=== PATIENT | female | born 1980 | race Caucasian/White ===

== ENCOUNTER → 2016-03-09 | Outpatient (REF) | payer OTHER ==
[2016-03-09 13:40] LABS: FREE T4 0.35 NG/DL (0.76-1.46)
== END ==
LOC: M SFHCADAM 11:01
PROVIDERS: ATTEND Physician Assistant Medical
DX: E89.0 Postprocedural hypothyroidism (principal); E55.9 Vitamin D deficiency, unspecified

== ENCOUNTER → 2016-03-09 | Outpatient (CLI) | payer OTHER ==
--- NOTE | 2016-03-09 12:47 | REP ---
LUMBAR SPINE, FIVE VIEWS: HISTORY: Back pain. There is no acute fracture or subluxation. The L3-4 and L4-5 intervertebral discs are decreased in height consistent with disc degeneration. Osteophytes are present on L4. The facet joints are normal in appearance. IMPRESSION: Degenerative change as described above. Signed by Ed Vela MD 03/09/2016 12:49 P
== END ==
LOC: M ADAMS 11:08
PROVIDERS: ATTEND Physician Assistant Medical
DX: M54.5 Low back pain (principal)

== ENCOUNTER 2016-03-10 08:21 | Emergency (ER) | payer OTHER ==
--- NOTE | 2016-03-10 09:59 | EDDOCDS ---
Physician Documentation [facility] Name: Chelsie Hare Age: 35 yrs Sex: Female : 1980 Arrival Date: 03/10/2016 Time: 08:21 Bed Triage 2 Private MD: Brenda Spann N. Disposition: 03/10/16 09:37 Discharged to Home/Self Care. Impression: Acute frontal sinusitis, Low back pain - mechanical, Acute upper respiratory infections of multiple and unspecified sites. - Condition is Stable. - Discharge Instructions: Back Pain, Adult, Sinusitis, [id number]. - Prescriptions for Levaquin 500 mg Oral Tablet - take 1 tablet by ORAL route once daily for 7 days; 7 tablet. Naprosyn 500 mg Oral Tablet - take 1 tablet by ORAL route 2 times per day take with food; 30 tablet. Prednisone 20 mg Oral Tablet - take 1 tablet by ORAL route once daily for 5 days; 5 tablet. Cyclobenzaprine 10 mg Oral Tablet - take 1 tablet by ORAL route 3 times per day As needed; 15 tablet. - Medication Reconciliation form. - Follow up: Emergency Department; When: As needed; Reason: Worsening of conditions. Follow up: Brenda Spann; When: Call to arrange an appointment; Reason: Wound/Symptom Recheck, Recheck today's complaints, Worsening of conditions, Continuance of care. - Problem is an ongoing problem. - Symptoms are unchanged. Historical: - Allergies: Amoxicillin (Rash); PENICILLINS (Rash, Anaphylaxis); - Home Meds: 1. Abilify 10 mg Oral tab 1 tab once daily 2. aspirin 81 mg Oral tab 1 tab once daily 3. Claritin 10 mg Oral tab 1 tab once daily 4. Dulcolax (bisacodyl) 5 mg Oral TbEC 1 tab once daily 5. Fetzima 120 mg oral Cs24 1 cap once daily 6. Flonase 50 mcg/actuation Nasal spsn 1 spray once daily 7. gabapentin 600 mg Oral tab 3 times per day 8. Klonopin 1 mg Oral tab 1 tab 2 times per day 9. levothyroxine 125 mcg Oral tab 2 tabs once daily 10. Miralax 17 gram Oral pwpk 1 packet twice a day 11. prazosin 1 mg Oral cap 1 cap nightly 12. Vitamin D Oral 2000 unit daily - PMHx: Anxiety; Bipolar disorder; Depression; Hypothyroidism; PTSD; - PSHx: Thyroidectomy; Cholecystectomy; Hysterectomy; - Social history: Smoking status: Patient uses tobacco products, light tobacco smoker. No barriers to communication noted, The patient speaks fluent Azerbaijani, Speaks appropriately for age. - Family history: Not pertinent. - : The pt / caregiver states he / she is not on anticoagulants. Home medication list is obtained from the patient. - Exposure Risk Screening:: None identified. 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 1 in. (154.94 cm) (R); Pain 8/10; 08:50 Body Mass Index 33.44 (80.29 kg, 154.94 cm) mlb1 MDM: 09:57 [facility] Payment Agreement was scanned into [employer] and attached to record. [facility] 09:57 Financial registration complete. [facility] Signatures: Tyrese Hansen RN RN mlb1 Keven Kaba PA-C PAHuyen cc10 Miriam Mahoney jls1 The chart was reviewed and I authenticate all verbal orders and agree with the evaluation and treatment provided.Attachments: 09:57 [facility] Payment Agreement jl MTDD
--- NOTE | 2016-03-10 09:59 | EDDOCDS ---
Nurse's Notes [facility] Name: Chelsie Hare Age: 35 yrs Sex: Female : 1980 Arrival Date: 03/10/2016 Time: 08:21 Bed Triage 2 Private MD: Brenda Spann N. Diagnosis: Acute frontal sinusitis;Low back pain-mechanical;Acute upper respiratory infections of multiple and unspecified sites Presentation: 03/10 08:28 Presenting complaint: Patient states: Low back pain for over a year worse in the past mlb1 two weeks and head congestion. Acute neurological deficits are not present. Mechanism of Injury: No Mechanism of Injury. Adult Sepsis Screening: The patient does not have new or worsening altered mentation. Patient's respiratory rate is less than 22. Systolic blood pressure is greater than 100. Patient has a qSOFA score of 0- Negative Sepsis Screen. 08:28 Acuity: KARAN Level 4 mlb1 09:54 Suicide/Homicide risk assessment- the patient denies having any suicidal and/or mlb1 homicidal ideations and does not present with any other emotional, behavioral or mental health complaints. 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 Transition of care: patient was not received from another setting of care. 09:54 Method Of Arrival: Walkin/Carried/Asstd mlb1 Triage Assessment: 08:50 General: Appears in no apparent distress, Behavior is appropriate for age, cooperative. mlb1 Pain: Location: low back area Pain currently is 8 out of 10 on a pain scale. Pain radiates to right leg and left leg. HIV screening NA for this visit Offered previously. 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 Abilify 10 mg Oral tab 1 tab once daily 2. aspirin 81 mg Oral tab 1 tab once daily 3. Claritin 10 mg Oral tab 1 tab once daily 4. Dulcolax (bisacodyl) 5 mg Oral TbEC 1 tab once daily 5. Fetzima 120 mg oral Cs24 1 cap once daily 6. Flonase 50 mcg/actuation Nasal spsn 1 spray once daily 7. gabapentin 600 mg Oral tab 3 times per day 8. Klonopin 1 mg Oral tab 1 tab 2 times per day 9. levothyroxine 125 mcg Oral tab 2 tabs once daily 10. Miralax 17 gram Oral pwpk 1 packet twice a day 11. prazosin 1 mg Oral cap 1 cap nightly 12. Vitamin D Oral 2000 unit daily - PMHx: Anxiety; Bipolar disorder; Depression; Hypothyroidism; PTSD; - PSHx: Thyroidectomy; Cholecystectomy; Hysterectomy; - Social history: Smoking status: Patient uses tobacco products, light tobacco smoker. No barriers to communication noted, The patient speaks fluent Bruneian, Speaks appropriately for age. - Family history: Not pertinent. - : The pt / caregiver states he / she is not on anticoagulants. Home medication list is obtained from the patient. - Exposure Risk Screening:: None identified. Screenin:54 Screening information is obtained from the patient. Fall risk: No risks identified. mlb1 Assistance ADL's: requires no assistance with activities of daily living. Abuse/DV Screen: The patient / caregiver reports he/she is: not in a situation that causes fear, pain or injury. Nutritional screening: No deficits noted. Advance Directives: Currently, there is no health care proxy. home support is adequate. Assessment: 09:54 General: Appears in no apparent distress, comfortable, Behavior is appropriate for age, mlb1 cooperative. Pain: Location: low back area Pain currently is 8 out of 10 on a pain scale. Respiratory: No deficits noted. Musculoskeletal: Circulation, motion, and sensation intact Range of motion intact in all extremities. Vital Signs: 08:50 BP 145 / 86; Pulse 103; Resp 16; Temp 98.3(TE); Pulse Ox 97% on R/A; Weight 80.29 kg mlb1 (R); Height 5 ft. 1 in. (154.94 cm) (R); Pain 8/10; 08:50 Body Mass Index 33.44 (80.29 kg, 154.94 cm) [facility] Vitals: 08:50 Log In Time: March 10, 2016 at 08:20. [facility] ED Course: 08:24 Patient visited by Alvarez Conroy. mm15 08:24 Brenda Spann is Private Physician. mm15 08:24 Patient moved to Waiting mm15 08:28 Patient visited by Tyrese Hansen, MEGAN. mlb1 08:29 Patient visited by Tyrese Hansen, MEGAN. mlb1 08:29 Triage Initiated mlb1 08:51 Patient visited by Tyrese Hansen RN. mlb1 09:21 Patient moved to Triage 2 mlb1 09:24 Keven Kaba [facility]C [facility] cc10 09:24 Keith Mcmahan MD is Attending Physician. cc10 09:29 Patient visited by Keven Kaba PA-C. cc10 09:29 Patient visited by Keven Kaba PA-C. cc10 09:37 Brenda Spann is Referral Physician. cc10 09:55 The patient / caregiver is instructed regarding the plan of care and ED course. mlb1 09:55 No IV's were initiated during this patient's visit. No procedures done that require mlb1 assistance. 09:57 [facility] Payment Agreement was scanned into [employer] and attached to record. jls1 Order Results: There are currently no results for this order. Outcome: 09:37 Discharge ordered by Provider. cc10 09:55 Discharge Assessment: Patient awake, alert and oriented x 3. No cognitive and/or mlb1 functional deficits noted. Patient verbalized understanding of disposition instructions. patient administered narcotics - no. The following High Risk Discharge criteria are identified: None. Discharged to home ambulatory. Condition: good. Discharge instructions given to patient, Instructed on discharge instructions, follow up and referral plans. medication usage, Demonstrated understanding of instructions, medications, Pt was receptive of discharge instructions/ teaching. Prescriptions given X 4. No special radiology studies were completed. Property sent home with patient. 09:58 Patient left the ED. mlb1 Signatures: Tyrese Hansen RN RN mlb1 Alvarez Conroy mm15 Keven Kaba PA-C PA-C cc10 Miriam Mahoney jls1 MTDD
--- NOTE | 2016-03-12 10:59 | EDDOCDS ---
Nurse's Notes [facility] Name: Chelsie Hare Age: 35 yrs Sex: Female : 1980 Arrival Date: 03/10/2016 Time: 08:21 Bed Triage 2 Private MD: Brenda Spann N. Diagnosis: Acute frontal sinusitis;Low back pain-mechanical;Acute upper respiratory infections of multiple and unspecified sites Presentation: 03/10 08:28 Presenting complaint: Patient states: Low back pain for over a year worse in the past mlb1 two weeks and head congestion. Acute neurological deficits are not present. Mechanism of Injury: No Mechanism of Injury. Adult Sepsis Screening: The patient does not have new or worsening altered mentation. Patient's respiratory rate is less than 22. Systolic blood pressure is greater than 100. Patient has a qSOFA score of 0- Negative Sepsis Screen. 08:28 Acuity: KARAN Level 4 mlb1 09:54 Suicide/Homicide risk assessment- the patient denies having any suicidal and/or mlb1 homicidal ideations and does not present with any other emotional, behavioral or mental health complaints. 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 Transition of care: patient was not received from another setting of care. 09:54 Method Of Arrival: Walkin/Carried/Asstd mlb1 Triage Assessment: 08:50 General: Appears in no apparent distress, Behavior is appropriate for age, cooperative. mlb1 Pain: Location: low back area Pain currently is 8 out of 10 on a pain scale. Pain radiates to right leg and left leg. HIV screening NA for this visit Offered previously. 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 Abilify 10 mg Oral tab 1 tab once daily 2. aspirin 81 mg Oral tab 1 tab once daily 3. Claritin 10 mg Oral tab 1 tab once daily 4. Dulcolax (bisacodyl) 5 mg Oral TbEC 1 tab once daily 5. Fetzima 120 mg oral Cs24 1 cap once daily 6. Flonase 50 mcg/actuation Nasal spsn 1 spray once daily 7. gabapentin 600 mg Oral tab 3 times per day 8. Klonopin 1 mg Oral tab 1 tab 2 times per day 9. levothyroxine 125 mcg Oral tab 2 tabs once daily 10. Miralax 17 gram Oral pwpk 1 packet twice a day 11. prazosin 1 mg Oral cap 1 cap nightly 12. Vitamin D Oral 2000 unit daily - PMHx: Anxiety; Bipolar disorder; Depression; Hypothyroidism; PTSD; - PSHx: Thyroidectomy; Cholecystectomy; Hysterectomy; - Social history: Smoking status: Patient uses tobacco products, light tobacco smoker. No barriers to communication noted, The patient speaks fluent Angolan, Speaks appropriately for age. - Family history: Not pertinent. - : The pt / caregiver states he / she is not on anticoagulants. Home medication list is obtained from the patient. - Exposure Risk Screening:: None identified. Screenin:54 Screening information is obtained from the patient. Fall risk: No risks identified. mlb1 Assistance ADL's: requires no assistance with activities of daily living. Abuse/DV Screen: The patient / caregiver reports he/she is: not in a situation that causes fear, pain or injury. Nutritional screening: No deficits noted. Advance Directives: Currently, there is no health care proxy. home support is adequate. Assessment: 09:54 General: Appears in no apparent distress, comfortable, Behavior is appropriate for age, mlb1 cooperative. Pain: Location: low back area Pain currently is 8 out of 10 on a pain scale. Respiratory: No deficits noted. Musculoskeletal: Circulation, motion, and sensation intact Range of motion intact in all extremities. Vital Signs: 08:50 BP 145 / 86; Pulse 103; Resp 16; Temp 98.3(TE); Pulse Ox 97% on R/A; Weight 80.29 kg mlb1 (R); Height 5 ft. 1 in. (154.94 cm) (R); Pain 8/10; 08:50 Body Mass Index 33.44 (80.29 kg, 154.94 cm) [facility] Vitals: 08:50 Log In Time: March 10, 2016 at 08:20. [facility] ED Course: 08:24 Patient visited by Alvarez Conroy. mm15 08:24 Brenda Spann is Private Physician. mm15 08:24 Patient moved to Waiting mm15 08:28 Patient visited by Tyrese Hansen, MEGAN. mlb1 08:29 Patient visited by Tyrese Hansen, MEGAN. mlb1 08:29 Triage Initiated mlb1 08:51 Patient visited by Tyrese Hansen RN. mlb1 09:21 Patient moved to Triage 2 mlb1 09:24 Keven Kaba PA-C [facility] cc10 09:24 Keith Mcmahan MD is Attending Physician. cc10 09:29 Patient visited by Keven Kaba PA-C. cc10 09:29 Patient visited by Keven Kaba PA-C. cc10 09:37 Brenda Spann is Referral Physician. cc10 09:55 The patient / caregiver is instructed regarding the plan of care and ED course. mlb1 09:55 No IV's were initiated during this patient's visit. No procedures done that require mlb1 assistance. 09:57 [facility] Payment Agreement was scanned into [employer] and attached to record. [facility] 13:58 T-Sheet-- Draft Copy was scanned into [employer] and attached to record. gb Order Results: There are currently no results for this order. Outcome: 09:37 Discharge ordered by Provider. cc10 09:55 Discharge Assessment: Patient awake, alert and oriented x 3. No cognitive and/or mlb1 functional deficits noted. Patient verbalized understanding of disposition instructions. patient administered narcotics - no. The following High Risk Discharge criteria are identified: None. Discharged to home ambulatory. Condition: good. Discharge instructions given to patient, Instructed on discharge instructions, follow up and referral plans. medication usage, Demonstrated understanding of instructions, medications, Pt was receptive of discharge instructions/ teaching. Prescriptions given X 4. No special radiology studies were completed. Property sent home with patient. 09:58 Patient left the ED. mlb1 Signatures: Kim Stanton, Reg Reg gb Tyrese Hansen, RN RN mlb1 Alvarez Conroy mm15 Keven Kaba PA-C PA-C cc10 Miriam Mahoney jls1 Chart Complete MTDD
--- NOTE | 2016-03-12 10:59 | EDDOCDS ---
Physician Documentation [facility] Name: Chelsie Hare Age: 35 yrs Sex: Female : 1980 Arrival Date: 03/10/2016 Time: 08:21 Bed Triage 2 Private MD: Brenda Spann N. Disposition: 03/10/16 09:37 Discharged to Home/Self Care. Impression: Acute frontal sinusitis, Low back pain - mechanical, Acute upper respiratory infections of multiple and unspecified sites. - Condition is Stable. - Discharge Instructions: Back Pain, Adult, Sinusitis, [id number]. - Prescriptions for Levaquin 500 mg Oral Tablet - take 1 tablet by ORAL route once daily for 7 days; 7 tablet. Naprosyn 500 mg Oral Tablet - take 1 tablet by ORAL route 2 times per day take with food; 30 tablet. Prednisone 20 mg Oral Tablet - take 1 tablet by ORAL route once daily for 5 days; 5 tablet. Cyclobenzaprine 10 mg Oral Tablet - take 1 tablet by ORAL route 3 times per day As needed; 15 tablet. - Medication Reconciliation form. - Follow up: Emergency Department; When: As needed; Reason: Worsening of conditions. Follow up: Brenda Spann; When: Call to arrange an appointment; Reason: Wound/Symptom Recheck, Recheck today's complaints, Worsening of conditions, Continuance of care. - Problem is an ongoing problem. - Symptoms are unchanged. Historical: - Allergies: Amoxicillin (Rash); PENICILLINS (Rash, Anaphylaxis); - Home Meds: 1. Abilify 10 mg Oral tab 1 tab once daily 2. aspirin 81 mg Oral tab 1 tab once daily 3. Claritin 10 mg Oral tab 1 tab once daily 4. Dulcolax (bisacodyl) 5 mg Oral TbEC 1 tab once daily 5. Fetzima 120 mg oral Cs24 1 cap once daily 6. Flonase 50 mcg/actuation Nasal spsn 1 spray once daily 7. gabapentin 600 mg Oral tab 3 times per day 8. Klonopin 1 mg Oral tab 1 tab 2 times per day 9. levothyroxine 125 mcg Oral tab 2 tabs once daily 10. Miralax 17 gram Oral pwpk 1 packet twice a day 11. prazosin 1 mg Oral cap 1 cap nightly 12. Vitamin D Oral 2000 unit daily - PMHx: Anxiety; Bipolar disorder; Depression; Hypothyroidism; PTSD; - PSHx: Thyroidectomy; Cholecystectomy; Hysterectomy; - Social history: Smoking status: Patient uses tobacco products, light tobacco smoker. No barriers to communication noted, The patient speaks fluent Australian, Speaks appropriately for age. - Family history: Not pertinent. - : The pt / caregiver states he / she is not on anticoagulants. Home medication list is obtained from the patient. - Exposure Risk Screening:: None identified. 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 1 in. (154.94 cm) (R); Pain 8/10; 08:50 Body Mass Index 33.44 (80.29 kg, 154.94 cm) mlb1 MDM: 09:57 [facility] Payment Agreement was scanned into [employer] and attached to record. [facility] 09:57 Financial registration complete. jls1 13:58 T-Sheet-- Draft Copy was scanned into [employer] and attached to record. gb Signatures: Kim Stanton, Reg Reg gb Tyrese Hansen RN RN mlb1 Keven Kaba PA-C PAMiriam Wong [facility] The chart was reviewed and I authenticate all verbal orders and agree with the evaluation and treatment provided.Attachments: 09:57 [facility] Payment Agreement s1 13:58 T-Sheet-- Draft Copy gb Chart Complete MTDD
--- NOTE | 2016-03-12 10:59 | EDDOCDS ---
Physician Documentation [facility] Name: Chelsie Hare Age: 35 yrs Sex: Female : 1980 Arrival Date: 03/10/2016 Time: 08:21 Bed Triage 2 Private MD: Brenda Spann N. Disposition: 03/10/16 09:37 Discharged to Home/Self Care. Impression: Acute frontal sinusitis, Low back pain - mechanical, Acute upper respiratory infections of multiple and unspecified sites. - Condition is Stable. - Discharge Instructions: Back Pain, Adult, Sinusitis, [id number]. - Prescriptions for Levaquin 500 mg Oral Tablet - take 1 tablet by ORAL route once daily for 7 days; 7 tablet. Naprosyn 500 mg Oral Tablet - take 1 tablet by ORAL route 2 times per day take with food; 30 tablet. Prednisone 20 mg Oral Tablet - take 1 tablet by ORAL route once daily for 5 days; 5 tablet. Cyclobenzaprine 10 mg Oral Tablet - take 1 tablet by ORAL route 3 times per day As needed; 15 tablet. - Medication Reconciliation form. - Follow up: Emergency Department; When: As needed; Reason: Worsening of conditions. Follow up: Brenda Spann; When: Call to arrange an appointment; Reason: Wound/Symptom Recheck, Recheck today's complaints, Worsening of conditions, Continuance of care. - Problem is an ongoing problem. - Symptoms are unchanged. Historical: - Allergies: Amoxicillin (Rash); PENICILLINS (Rash, Anaphylaxis); - Home Meds: 1. Abilify 10 mg Oral tab 1 tab once daily 2. aspirin 81 mg Oral tab 1 tab once daily 3. Claritin 10 mg Oral tab 1 tab once daily 4. Dulcolax (bisacodyl) 5 mg Oral TbEC 1 tab once daily 5. Fetzima 120 mg oral Cs24 1 cap once daily 6. Flonase 50 mcg/actuation Nasal spsn 1 spray once daily 7. gabapentin 600 mg Oral tab 3 times per day 8. Klonopin 1 mg Oral tab 1 tab 2 times per day 9. levothyroxine 125 mcg Oral tab 2 tabs once daily 10. Miralax 17 gram Oral pwpk 1 packet twice a day 11. prazosin 1 mg Oral cap 1 cap nightly 12. Vitamin D Oral 2000 unit daily - PMHx: Anxiety; Bipolar disorder; Depression; Hypothyroidism; PTSD; - PSHx: Thyroidectomy; Cholecystectomy; Hysterectomy; - Social history: Smoking status: Patient uses tobacco products, light tobacco smoker. No barriers to communication noted, The patient speaks fluent Rwandan, Speaks appropriately for age. - Family history: Not pertinent. - : The pt / caregiver states he / she is not on anticoagulants. Home medication list is obtained from the patient. - Exposure Risk Screening:: None identified. 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 1 in. (154.94 cm) (R); Pain 8/10; 08:50 Body Mass Index 33.44 (80.29 kg, 154.94 cm) mlb1 MDM: 09:57 [facility] Payment Agreement was scanned into [employer] and attached to record. [facility] 09:57 Financial registration complete. jls1 13:58 T-Sheet-- Draft Copy was scanned into [employer] and attached to record. gb Signatures: Kim Stanton, Reg Reg gb Tyrese Hansen RN RN mlb1 Keven Kaba PA-C PAMiriam Wong [facility] The chart was reviewed and I authenticate all verbal orders and agree with the evaluation and treatment provided.Attachments: 09:57 [facility] Payment Agreement s1 13:58 T-Sheet-- Draft Copy gb Chart Complete MTDD
== END 2016-03-10 09:58 | disposition home or self-care (01) ==
LOC: M ED 08:21
DX: M54.5 Low back pain (principal); J01.90 Acute sinusitis, unspecified; F41.9 Anxiety disorder, unspecified; F31.9 Bipolar disorder, unspecified; E03.9 Hypothyroidism, unspecified; F43.10 Post-traumatic stress disorder, unspecified; Z79.899 Other long term (current) drug therapy; Z79.82 Long term (current) use of aspirin; Z88.0 Allergy status to penicillin; Z88.1 Allergy status to other antibiotic agents; F17.210 Nicotine dependence, cigarettes, uncomplicated

== ENCOUNTER 2016-05-01 14:55 | Emergency (ER) | payer OTHER ==
[~2016-05-01] VITALS: Ht 154.9 cm; Wt 76.2 kg
[2016-05-01] MEDS ORDERED: PRAZ1CAP (15:12)
[2016-05-01] MEDS ORDERED: IBUP80TA (15:12)
[2016-05-01] MEDS ORDERED: CLON1TAB (15:12)
[2016-05-01] MEDS ORDERED: LEVO125T3 (15:12)
[2016-05-01] MEDS ORDERED: BUSP30TA (15:12)
[2016-05-01] MEDS ORDERED: CLON0.2T (15:12)
[2016-05-01] MEDS ORDERED: ARIP1TAB2 (15:12)
[2016-05-01] MEDS ORDERED: GABA600T (15:12)
[2016-05-01] MEDS ORDERED: MIRT30TA3 (15:12)
[2016-05-01] MEDS ORDERED: KLON0.5T (15:12)
[2016-05-01] MEDS ORDERED: [UNRECOGNIZED DRUG - CODE] (15:12)
[2016-05-01 17:13] LABS: BASO % 0.7 % (0.0-1.0); EOS # 0.2 K/mm3 (0.0-0.50); EOS % 3.9 % (0.0-3.0); LARGE UNSTAINED CELL # 0.1 K/mm3 (0.0-0.4); LARGE UNSTAINED CELL % 1.3 % (0.0-4.0); LYMPH # 2.1 K/mm3 (1.5-4.5); LYMPH % 35.3 % (24.0-44.0); MEAN CORPUSCULAR HEMOGLOBIN 29.7 pg (27.0-33.0); MEAN CORPUSCULAR HGB CONC 33.6 g/dl (32.0-36.5); MEAN CORPUSCULAR VOLUME 88.4 fl (80.0-96.0); MONO # 0.3 K/mm3 (0.0-0.8); MONO % 5.1 % (0.0-5.0); NEUTROPHILS # 3.3 K/mm3 (1.8-7.7); NEUTROPHILS % 53.7 % (36.0-66.0); PLATELET COUNT, AUTOMATED 337 k/mm3 (150-450); RED CELL DISTRIBUTION WIDTH 12.9 % (11.5-14.5); WHITE BLOOD COUNT 6.1 K/mm3 (4.0-10.0)
[2016-05-01 17:44] LABS: ALBUMIN 3.7 GM/DL (3.2-5.2); ALBUMIN/GLOBULIN RATIO 0.86 (1.00-1.93); ALKALINE PHOSPHATASE 96 U/L (45-117); ALT/SGPT 21 U/L (12-78); ANION GAP 7 MEQ/L (8-16); AST/SGOT 16 U/L (15-37); BILIRUBIN,TOTAL 0.3 MG/DL (0.2-1.0); BLOOD UREA NITROGEN 8 MG/DL (7-18); CALCIUM LEVEL 8.8 MG/DL (8.5-10.1); CARBON DIOXIDE LEVEL 28 MEQ/L (21-32); CHLORIDE LEVEL 106 MEQ/L (98-107); CREATININE FOR GFR 0.83 MG/DL (0.55-1.02); GLOMERULAR FILTRATION RATE > 60.0 (>60); GLUCOSE, FASTING 82 MG/DL (70-105); POTASSIUM SERUM 4.8 MEQ/L (3.5-5.1); SODIUM LEVEL 141 MEQ/L (136-145)
--- NOTE | 2016-05-01 17:50 | REPUSA ---
CLINICAL HISTORY: R/o hydronephrosis. TECHNIQUE: Realtime sonographic images were obtained in multiple projections. COMMENTS: The right kidney measures 10.9 cm and the left kidney measures 10.9 cm. Both kidneys are free of hydr onephrosis. There is no evidence of solid or cystic mass. There is no perinephric fluid. There is no renal calculus. IMPRESSION: Normal study. Thank you for your kind referral of this patient.
[2016-05-01] MEDS ORDERED: ROBA500T PO (19:41)
[2016-05-01] MEDS ORDERED: NAPR500T2 PO (19:41)
[2016-05-01 19:48] VITALS: BP 118/69
--- NOTE | 2016-05-02 10:23 | REP ---
REASON: Flank pain. COMPARISON: Frontal view obtained as part of an abdominal series 01/23/2016. The cardiomediastinal silhouette is unchanged. Mild cardiomegaly cannot be ruled out. The lung yu are clear and stable showing no evidence of an acute patchy parenchymal opacity or pleural effusion. The osseous structures are stable and intact. IMPRESSION: No evidence of an acute cardiopulmonary disease. Signed by Harish Aldridge DO 05/02/2016 10:28 A
== END 2016-05-01 19:47 | disposition home or self-care (01) ==
LOC: M ED 16:33
DX: S39.012A Strain of muscle, fascia and tendon of lower back, initial encounter (principal); X58.XXXA Exposure to other specified factors, initial encounter; Y92.89 Other specified places as the place of occurrence of the external cause; Y93.89 Activity, other specified; Y99.8 Other external cause status; F41.9 Anxiety disorder, unspecified; F32.9 Major depressive disorder, single episode, unspecified; Z79.899 Other long term (current) drug therapy; Z88.0 Allergy status to penicillin; F17.210 Nicotine dependence, cigarettes, uncomplicated

== ENCOUNTER 2016-05-25 00:22 | Emergency (ER) | payer OTHER ==
[~2016-05-25] VITALS: Ht 157.5 cm; Wt 76.2 kg
[~2016-05-25 00:22] MED LIST: ARIP1TAB2; BUSP30TA; CLON0.2T; CLON1TAB; GABA600T; IBUP80TA; KLON0.5T; LEVO125T3; MIRT30TA3; NAPR500T2 PO; PRAZ1CAP; ROBA500T PO; [UNRECOGNIZED DRUG - CODE]
[2016-05-25] MEDS ORDERED: GEOD20CA14 PO (00:32)
[2016-05-25] MEDS ORDERED: KETOROLAC 60 MG/2 ML VIAL (J1885) IM ONE (03:30)
[2016-05-25] MEDS ORDERED: KETOROLAC 30 MG/ML VIAL (J1885) As Ordered ONE (03:52)
[2016-05-25 04:37] VITALS: BP 103/60
--- NOTE | 2016-05-25 08:09 | REP ---
Sacrum and coccyx three views: The sacroiliac articulations are unremarkable. The sacral ala and foramen are unremarkable. No fracture or displacement of the sacral segments are identified on plain films. There are no calcifications or foreign bodies. Impression: Negative plain film study of the sacrum and coccyx. Signed by Sergey White MD 05/25/2016 08:00 A
== END 2016-05-25 04:39 | disposition home or self-care (01) ==
LOC: M ED 01:50
DX: S30.0XXA Contusion of lower back and pelvis, initial encounter (principal)
CPT/HCPCS: 72220; 96372; 99282; J1885

== ENCOUNTER 2016-06-10 08:28 | Emergency (ER) | payer OTHER ==
[~2016-06-10] VITALS: Ht 154.9 cm; Wt 76.2 kg
[~2016-06-10 08:28] MED LIST changes: -BUSP30TA; +BUSP30TA PO; -CLON0.2T; +CLON0.2T PO; -GABA600T; +GABA600T PO; +GEOD20CA14 PO; -IBUP80TA; +IBUP80TA PO; -MIRT30TA3; +MIRT30TA3 PO
[2016-06-10] MEDS ORDERED: PRAZ1CAP PO (08:42)
[2016-06-10 09:38] VITALS: BP 112/68
== END 2016-06-10 09:39 | disposition home or self-care (01) ==
LOC: M ED 09:02
DX: J06.9 Acute upper respiratory infection, unspecified (principal)

== ENCOUNTER 2016-07-15 19:44 | Emergency (ER) | payer OTHER ==
[~2016-07-15] VITALS: Ht 154.9 cm; Wt 78.0 kg
[~2016-07-15 19:44] MED LIST changes: +PRAZ1CAP PO
[2016-07-15 21:56] VITALS: BP 120/65
[2016-07-15] MEDS ORDERED: KETOROLAC 60 MG/2 ML VIAL (J1885) IM ONE (22:45)
[2016-07-15] MEDS ORDERED: CYCL10TA PO (22:48)
[2016-07-15] MEDS ORDERED: HYDR-3713 PO (22:48)
== END 2016-07-15 23:59 | disposition home or self-care (01) ==
LOC: M ED 22:42
DX: M54.5 Low back pain (principal); G89.29 Other chronic pain; F17.210 Nicotine dependence, cigarettes, uncomplicated

== ENCOUNTER 2016-08-24 10:11 | Emergency (ER) | payer OTHER ==
[~2016-08-24] VITALS: Ht 157.5 cm; Wt 76.8 kg
[~2016-08-24 10:11] MED LIST changes: +CYCL10TA PO; +HYDR-3713 PO; -LEVO125T3; +LEVO125T4; -NAPR500T2 PO; +NAPR500T3 PO
[2016-08-24] MEDS ORDERED: ZITHTAB PO (10:38)
[2016-08-24 11:18] VITALS: BP 121/76
== END 2016-08-24 11:23 | disposition home or self-care (01) ==
LOC: M ED 10:11
DX: J06.9 Acute upper respiratory infection, unspecified (principal); R05 Cough

== ENCOUNTER 2016-09-10 17:23 | Emergency (ER) | payer OTHER ==
[~2016-09-10] VITALS: Ht 157.5 cm; Wt 75.9 kg
[~2016-09-10 17:23] MED LIST changes: +ZITHTAB PO
[2016-09-10] MEDS ORDERED: NORCO, ANEXSIA 5/325MG TABLET (HYDROcodone/ACETAMINOPHEN) PO ONE (18:30)
[2016-09-10] MEDS ORDERED: ONDANSETRON 4 MG ORAL DISINTEGRATING TAB (S0181) PO ONE (18:30)
[2016-09-10 19:18] VITALS: BP 106/63
--- NOTE | 2016-09-10 19:29 | REP ---
RIGHT KNEE, FIVE VIEWS: There is no evidence of an acute fracture, dislocation or intrinsic bone disease. IMPRESSION: No fracture or dislocation. Signed by Sergey Osborne MD 09/10/2016 08:20 P
== END 2016-09-10 19:24 | disposition home or self-care (01) ==
LOC: M ED 17:23
DX: S83.421A Sprain of lateral collateral ligament of right knee, initial encounter (principal); X58.XXXA Exposure to other specified factors, initial encounter; Y92.89 Other specified places as the place of occurrence of the external cause; Y93.89 Activity, other specified; Y99.8 Other external cause status; J45.909 Unspecified asthma, uncomplicated; F33.9 Major depressive disorder, recurrent, unspecified; F43.10 Post-traumatic stress disorder, unspecified; Z79.899 Other long term (current) drug therapy; Z88.0 Allergy status to penicillin; F17.210 Nicotine dependence, cigarettes, uncomplicated

== ENCOUNTER → 2016-09-16 | Outpatient (REF) | payer OTHER ==
[~2016-09-16] MED LIST changes: +BUPR75TA5 PO; +OXCA150T PO; +PERC5TAB12 PO; +PRED20TA PO; +SERO1TAB2 PO; +SYNT125T PO
== END ==
LOC: M SFHCPLAZ 13:52
PROVIDERS: ATTEND Nurse Practitioner Family
DX: E89.0 Postprocedural hypothyroidism (principal)

== ENCOUNTER 2016-09-22 04:04 | Inpatient (IN) | payer OTHER ==
[~2016-09-22] VITALS: Ht 157.5 cm; Wt 76.0 kg
[~2016-09-22 04:04] MED LIST changes: -BUPR75TA5 PO; -OXCA150T PO; -PERC5TAB12 PO; -PRED20TA PO; -SERO1TAB2 PO; -SYNT125T PO
[2016-09-22 04:40] LABS: MEAN CORPUSCULAR HGB CONC 33.9 g/dl (32.0-36.5); MEAN CORPUSCULAR VOLUME 88.4 fl (80.0-96.0); WHITE BLOOD COUNT 7.4 K/mm3 (4.0-10.0)
[2016-09-22 05:01] LABS: CONTROL LINE HCG INT CTR LINE PRESENT
[2016-09-22 05:07] LABS: METHADONE URINE NEGATIVE (NEGATIVE)
[2016-09-22 05:16] LABS: ALBUMIN 3.6 GM/DL (3.2-5.2); ALKALINE PHOSPHATASE 90 U/L (45-117); ALT/SGPT 16 U/L (12-78); ANION GAP 11 MEQ/L (8-16); AST/SGOT 10 U/L (15-37); BILIRUBIN,DIRECT < 0.1 MG/DL (0.0-0.2); BILIRUBIN,TOTAL 0.2 MG/DL (0.2-1.0); BLOOD UREA NITROGEN 8 MG/DL (7-18); CALCIUM LEVEL 8.3 MG/DL (8.5-10.1); CARBON DIOXIDE LEVEL 26 MEQ/L (21-32); CHLORIDE LEVEL 108 MEQ/L (98-107); CREATININE FOR GFR 0.79 MG/DL (0.55-1.02); GLOMERULAR FILTRATION RATE > 60.0 (>60); GLUCOSE, FASTING 91 MG/DL (70-105); POTASSIUM SERUM 3.7 MEQ/L (3.5-5.1); SODIUM LEVEL 145 MEQ/L (136-145); TOTAL PROTEIN 7.6 GM/DL (6.4-8.2)
[2016-09-22] MEDS ORDERED: BUPR75TA5 PO (06:25)
[2016-09-22] MEDS ORDERED: OXCA150T PO (06:25)
[2016-09-22] MEDS ORDERED: SYNT125T PO (06:25)
[2016-09-22] MEDS ORDERED: MAALOX 30 ML SUSP *UDC PO PRN (06:45)
[2016-09-22] MEDS ORDERED: OLANZapine ORAL DISINTEGRATING TAB 5MG PO PRN (06:45)
[2016-09-22] MEDS ORDERED: traZODone 50 MG TAB PO PRN (06:45)
[2016-09-22] MEDS ORDERED: MOM 30ML SUSPENSION UDC PO PRN (06:45)
[2016-09-22] MEDS ORDERED: ACETAMINOPHEN TAB 650MG DOSE (2X325MG) PO PRN (06:45)
[2016-09-22 09:11] VITALS: BP 119/67
[2016-09-22] MEDS: NICOTINE 21MG/24HR 1 EA TRANSDERMAL TD SCH (10:02)
[2016-09-22] MEDS: LEVOTHYROXINE 125MCG TABLET (0.125MG) PO SCH (10:03)
[2016-09-22] MEDS: OXcarbazepine 150 MG TAB PO SCH ×2 (16:06→21:14)
[2016-09-22] MEDS ORDERED: buPROPion 75 MG TAB PO SCH (21:00)
[2016-09-22] MEDS ORDERED: OXcarbazepine 150 MG TAB PO SCH (21:00)
[2016-09-23] MEDS: LEVOTHYROXINE 125MCG TABLET (0.125MG) PO SCH (06:06)
[2016-09-23 06:32] VITALS: BP 121/72
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
[2016-09-23] MEDS: OXcarbazepine 150 MG TAB PO SCH ×3 (09:48→21:17)
[2016-09-23] MEDS: NICOTINE 21MG/24HR 1 EA TRANSDERMAL TD SCH (09:48)
[2016-09-23] MEDS: LIDOCAINE 5% (LIDODERM) PATCH TD SCH (09:48)
[2016-09-23 18:00] VITALS: BP 137/72
--- NOTE | 2016-09-23 18:31 | ECGEPIP ---
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 Repolarization abnormalities 10/14/15 have improved Electronically Signed On 09-23-2016 18:31:10 EDT by Scot May
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
[2016-09-23] MEDS ORDERED: **NOTE PATIENT COMMENT** MISC XX SCH (21:00)
[2016-09-24] MEDS: LEVOTHYROXINE 125MCG TABLET (0.125MG) PO SCH (05:52)
[2016-09-24 06:32] VITALS: BP 120/61
[2016-09-24] MEDS ORDERED: IBUPROFEN 600 MG TAB PO PRN (08:00)
--- NOTE | 2016-09-24 08:12 | MHIPN ---
DATE: 09/23/2016 VITAL SIGNS: Temperature 97.3, pulse 74, respirations 16, blood pressure 121/72. CURRENT MEDICATIONS: - Tegretol 150 mg three times a day - nicotine patch 21 mg daily topical HISTORY OF PRESENT ILLNESS: The patient states that she is less irritable now that she is off the Wellbutrin. She does blame the Wellbutrin for the agitation and homicidal thoughts she had towards her neighbor. She is still unhappy with her current living situation, however. She is going to ask her [facility] business case analyst to help her move. Her depression is in the moderate range. The patient is isolating. She finds it hard to go to groups but is encouraged to do so. The patient complains about the noisy door which wakes her up frequently at night. MENTAL STATUS EXAMINATION: The patient is still depressed. She is irritable. She is on edge. Homicidal ideation has been reduced. Suicidal ideation less prominent. She denies hearing voices. Insight and judgment remain poor with poor impulse control. DIAGNOSES: 1. Bipolar, depressed. 2. Posttraumatic stress disorder (PTSD). 3. Borderline personality disorder. 4. Cocaine use disorder, in remission. PLAN: Continue Trileptal 150 mg three times a day. Start to work on moving patient to a quieter room.
[2016-09-24] MEDS: LIDOCAINE 5% (LIDODERM) PATCH TD SCH (08:56)
[2016-09-24] MEDS: OXcarbazepine 150 MG TAB PO SCH ×2 (08:56→15:45)
[2016-09-24] MEDS: NICOTINE 21MG/24HR 1 EA TRANSDERMAL TD SCH (08:56)
[2016-09-24] MEDS ORDERED: OXCA150T PO (13:01)
--- NOTE | 2016-09-26 11:30 | MHDS ---
DATE OF ADMISSION: 09/22/2016 DATE OF DISCHARGE: 09/24/2016 VITAL SIGNS: Temperature 96.8, pulse 86, respirations 18, blood pressure 120/61. LABORATORY: Complete blood count (CBC) and differential within normal limits. Chemistry within normal limits, except for chloride elevated at 108. Calcium is low at 8.3. Thyroid simulating hormone (TSH) elevated. Toxicology negative. DISCHARGE MEDICATIONS: Trileptal 150 mg three times a day. DISCHARGE DIAGNOSIS: 1. Bipolar disorder, depressed. 2. Posttraumatic stress disorder (PTSD). 3. Cocaine use disorder in remission. 4. Borderline personality disorder. CHIEF COMPLAINT: Homicidal and suicidal ideation. HISTORY OF PRESENT ILLNESS: This is a 35-year-old white female, , living by herself, brought in by a friend to the emergency room. The patient had initially been placed on Wellbutrin, which she takes at bedtime. She has been more agitated since being on it. The patient has been homicidal about her upstairs roommate, who may be a drug dealer. She claims that the upstairs roommate's friends are knocking at her door constantly throughout the night and waking her up. The patient has also had suicidal thoughts as well since being on the Wellbutrin. The patient is also stressed as her 14-year-old son has been moved to a residential treatment facility two [place] drive away. She has not seen him for almost one month. The patient is in treatment at the community clinic. She has been on multiple psychotropic trials in the past. PROGRESS ON THE UNIT: The patient's Wellbutrin was immediately discontinued. Her Trileptal dose was increased rightly up to 150 mg three times a day. The patient's mood dramatically improved from day to day. Her homicidal ideation resolved, so did the suicidal thoughts, rapid type was much improved. She slept well at night. She felt her mood is being much more stable on the Trileptal. She was very insistent about being discharged and not stay longer to have the Trileptal dose increased. The patient is looking forward to her son's visit tomorrow from the residential treatment facility. She has not seen him for the past month and will be very disappointed to have that family meeting cancelled. The patient's bilingual patient support caseworker agreed that the patient was back to baseline, so did her close friends, who lives here locally, who confirms this. The patient is agreeable to followup with her outpatient therapist. She likes the Trileptal and will continue on this pharmaceutical agent. MENTAL STATUS EXAMINATION: Mood and affect much improved. Eye contact was good. Impulsivity has resolved. She is not longer homicidal or suicidal. Affect appeared much brighter. She was not hearing voices. No signs or paranoia or thought disorder. Insight and judgment seems much improved. ASSESSMENT: No current signs of dangerousness. The patient appears to have had an adverse reaction to her Wellbutrin. PLAN: Discharged today with outpatient followup. The patient is encouraged to take her Trileptal as prescribed on a three times a day basis and the patient will followup next week with her outpatient therapist.
== END 2016-09-24 13:30 | disposition home or self-care (01) | DRG 753 ==
LOC: M ED 04:04 → M ED INP 06:40 → M PSY 08:20
PROVIDERS: ADMIT Psychiatry & Neurology Psychiatry; ATTEND Psychiatry & Neurology Psychiatry
DX: F31.9 Bipolar disorder, unspecified (principal); F43.10 Post-traumatic stress disorder, unspecified; F14.21 Cocaine dependence, in remission; F60.3 Borderline personality disorder; E89.0 Postprocedural hypothyroidism; E78.5 Hyperlipidemia, unspecified; E55.9 Vitamin D deficiency, unspecified; K59.00 Constipation, unspecified; M54.5 Low back pain; F17.210 Nicotine dependence, cigarettes, uncomplicated; T43.205A Adverse effect of unspecified antidepressants, initial encounter; Z79.899 Other long term (current) drug therapy; Z88.0 Allergy status to penicillin; Y99.8 Other external cause status; Y92.009 Unspecified place in unspecified non-institutional (private) residence as the place of occurrence of the external cause

== ENCOUNTER 2016-10-03 11:27 | Emergency (ER) | payer OTHER ==
[~2016-10-03] VITALS: Ht 157.5 cm; Wt 77.2 kg
[~2016-10-03 11:27] MED LIST changes: +BUPR75TA5 PO; +OXCA150T PO; +SYNT125T PO
[2016-10-03] MEDS ORDERED: SERO1TAB2 PO (11:48)
[2016-10-03] MEDS ORDERED: KETOROLAC 60 MG/2 ML VIAL (J1885) IM ONE (12:45)
[2016-10-03] MEDS ORDERED: CYCL10TA PO (13:49)
[2016-10-03] MEDS ORDERED: PRED20TA PO (13:49)
[2016-10-03 13:57] VITALS: BP 136/81
== END 2016-10-03 13:59 | disposition home or self-care (01) ==
LOC: M ED 11:27
DX: S39.012A Strain of muscle, fascia and tendon of lower back, initial encounter (principal); M51.35 Other intervertebral disc degeneration, thoracolumbar region; Z72.0 Tobacco use; X58.XXXA Exposure to other specified factors, initial encounter; Y92.89 Other specified places as the place of occurrence of the external cause; Y93.89 Activity, other specified; Y99.9 Unspecified external cause status
CPT/HCPCS: 96372; 99282; J1885; J3360

== ENCOUNTER 2016-10-05 14:18 | Emergency (ER) | payer OTHER ==
[~2016-10-05] VITALS: Ht 157.5 cm; Wt 73.7 kg
[~2016-10-05 14:18] MED LIST changes: +PRED20TA PO; +SERO1TAB2 PO
[2016-10-05] MEDS: PERCOCET 5MG/325MG TAB PO ONE (16:00)
[2016-10-05] MEDS ORDERED: PERC5TAB12 PO (17:34)
[2016-10-05 17:41] VITALS: BP 132/88
--- NOTE | 2016-10-05 18:12 | REP ---
LUMBOSACRAL SPINE SERIES: Five views of the lumbosacral spine are performed. There is no compression fracture or malalignment. There is no spondylolysis or spondylolisthesis. There is normal lumbar lordosis. There is mild disc space narrowing at L5-S1 with sclerosis at the posterior facet joints at that level. The posterior elements are intact. There is mild sclerosis at the sacroiliac joints. IMPRESSION: Mild degenerative changes without fracture or dislocation. Signed by Sergey Osborne MD 10/06/2016 05:06 P
--- NOTE | 2016-10-05 18:39 | REP ---
RIGHT ELBOW, FOUR VIEWS: There is no evidence of an acute fracture, dislocation or intrinsic bone disease. IMPRESSION: No fracture or dislocation. Signed by Sergey Osborne MD 10/06/2016 05:07 P
== END 2016-10-05 17:53 | disposition home or self-care (01) ==
LOC: M ED 14:18
DX: M51.36 Other intervertebral disc degeneration, lumbar region (principal); M70.31 Other bursitis of elbow, right elbow; N39.41 Urge incontinence; E03.9 Hypothyroidism, unspecified; F43.10 Post-traumatic stress disorder, unspecified; F31.9 Bipolar disorder, unspecified; F60.3 Borderline personality disorder; F17.210 Nicotine dependence, cigarettes, uncomplicated; Z88.0 Allergy status to penicillin; Z88.1 Allergy status to other antibiotic agents; Z88.8 Allergy status to other drugs, medicaments and biological substances; Z79.52 Long term (current) use of systemic steroids; Z79.899 Other long term (current) drug therapy

== ENCOUNTER → 2016-11-11 | Outpatient (REF) | payer OTHER ==
[~2016-11-11] MED LIST changes: +PERC5TAB12 PO
[2016-11-11 12:59] LABS: FREE T4 3.91 NG/DL (0.76-1.46)
== END ==
LOC: M SFHCPLAZ 08:54
PROVIDERS: ATTEND Nurse Practitioner Family
DX: E89.0 Postprocedural hypothyroidism (principal)

== ENCOUNTER → 2016-11-15 | Outpatient (REF) | payer OTHER ==
[2016-11-15 16:17] LABS: THYROID PEROXIDASE ANTIBODY 36.8 U/ML (<60.0)
== END ==
LOC: M SFHCPLAZ 14:11
PROVIDERS: ATTEND Nurse Practitioner Family
DX: E89.0 Postprocedural hypothyroidism (principal)

== ENCOUNTER → 2016-11-16 | Outpatient (CLI) | payer OTHER ==
--- NOTE | 2016-11-17 06:59 | REP ---
Clinical: Follow up for thyroid cancer and prior thyroidectomy. Technique: Real time forde scale and color evaluation using linear high frequency transducer. Findings: Ultrasound examination at the thyroid bed demonstrates no residual thyroid tissue, mass lesion, fluid collection or obvious abnormality. Impression: No obvious abnormality or residual thyroid tissue noted. Signed by Aris Ngo MD 11/17/2016 06:51 A
== END ==
LOC: M RAD 14:41
PROVIDERS: ATTEND Nurse Practitioner Family
DX: E89.0 Postprocedural hypothyroidism (principal)